=== PATIENT | male | born 1935 | race Caucasian/White ===

== ENCOUNTER → 2018-02-07 10:24 | Outpatient (CLI) | payer MEDICARE ==
[~2018-02-07] VITALS: Ht 172.7 cm; Wt 81.8 kg
--- NOTE | ~2018-02-07 | OP ---
PATIENT NAME: MOLLY MAYEN MEDICAL RECORD: [id number] :31 LOCATION:D.CAT ADMISSION DATE: SURGEON: OLGA KHAN MD DATE OF OPERATION: 02/07/2018 PROCEDURE: Catheterization plus four-vessel plus LINQ device placement. LINQ DEVICE PLACEMENT: After the skin was prepped and draped in usual fashion, 1% lidocaine was used for local anesthesia. The LINQ was placed subcutaneously in the usual fashion. After adequate R waves were obtained, the LINQ was secured and this was closed with karen. FOUR-VESSEL ARTERIOGRAPHY: RIGHT: Right common carotid was selectively cannulated. This shows a smooth-walled vessel, free of disease. Right internal carotid, smooth-walled vessel, free of disease. Right external carotid, smooth-walled vessel, free of disease. LEFT: Left common carotid shows a plaque of approximately 70% before the bifurcation of the left internal and external carotid. Left internal carotid, smooth-walled vessel, free of disease. Left external carotid, smooth-walled vessel, free of disease. LEFT HEART CATHETERIZATION: Left heart catheterization, selective coronary angiography, right femoral artery approach. CATHETERS: A 5-Maltese sheath, 5/4 left and right Cecy, 5/4 pig. The procedure was well tolerated. FINDINGS: Left ventriculography in 30-degree ORDONEZ view: Normal wall motion, normal systolic function. CORONARY ANATOMY: LEFT MAIN: Left main is free of disease. LAD: Has severe diffuse distal disease. This is a very small vessel and not reaching the apex. CIRCUMFLEX: Circumflex again a small vessel, not reaching the apex, free of disease. RIGHT CORONARY ARTERY: This is a large, dominant right and this actually supplies the apex and this shows no dissection or stenosis. IMPRESSION: Significant disease of the left common carotid, will be managed medically. Distal disease of the LAD, will be manage medically. Successful planning of LINQ device. TRANSINT:[id number] Voice Confirmation ID: [id number] DOCUMENT ID: [id number] OPERATIVE REPORT [id number] MOLLY MAYEN GREGORY A MD at 1135 CC: [id number] DICTATION DATE: 02/07/18 1451 BOOT REPAIRER: 02/07/18 1526 DEP CLI 02/07/18 [facility] [address] [place] [address]
--- NOTE | ~2018-02-07 | HEMODYNAMI ---
PATIENT:MOLLY MAYEN MEDICAL RECORD: [id number] : 31 LOCATION:DILEEP ADMISSION DATE: 02/07/18 Generatedon:02/07/201814:50 Patient name: MOLLY MAYEN Patient #: [id number] SSN: : 1935 Date of study: 02/07/2018 Page: Of Hemodynamic Procedure Report Patient Data Patient Demographics Procedure consent was obtained First Name: MOLLY Gender: Male Last Name: TIARRA : 1935 [facility] Initial: VIPUL Age: 82 year(s) Patient #: [id number] Race: Unknown Additional ID: [id number] Contact details [address]: [address] [place] [address] State: [place] City: [place] Zip code: [address] Past Medical History Allergies: No known allergies Admission Admission Data Admission Date: 02/07/2018 Admission Time: 10:24 Procedure Procedure Types Cath Procedure Diagnostic Procedure LHC LHC w/Coronaries PPM/ICD Loop Recorder Implant Peripheral Cath Diagnostic Procedure Vice Admiral Peripheral Procedures Four Vessel Arteriogram Procedure Description Procedure Date Procedure Date: 02/07/2018 Procedure Start Time: 14:31 Procedure End Time: 14:47 Procedure Staff Name Function Hao Rob MD Performing Physician Fadia Mackey RT Monitor Timothy Stewart RN Nurse Dionna Bustamante RT Scrub Procedure Data Cath Procedure Fluoroscopy Diagnostic fluoroscopy Total fluoroscopy Time: 3.2 time: 3.2 min min Diagnostic fluoroscopy Total fluoroscopy dose: 452 dose: 452 mGy mGy Contrast Material Contrast Material Type Amount (ml) Isovue 300 78 Entry Location Entry Primary Successful Side Size Upsize Upsize Entry Closure Succes sful Closure Location (Fr) 1 (Fr) 2 (Fr) Remarks Device Remarks Femoral Right 5 Fr Exoseal artery Estimated blood loss: 5 ml Diagnostic catheters Device Type Used For End Catheter Placement MULTIPACK JL 4.0 5Fr Left Coronary catheter Angiography MULTIPACK 3DRC 5Fr Right Coronary catheter Angiography MULTIPACK 3DRC 5Fr Cervical carotid catheter (common) arteriography MULTIPACK 3DRC 5Fr Cervical carotid catheter (common) arteriography MULTIPACK Pigtail 5 Fr LV Angiography catheter Procedure Complications No complications Procedure Medications Medication Administration Route Dosage 0.9% NaCl I.V. 100 ml/hr Oxygen etCO2 Nasal cannula 2 l/min Heparin Flush Bag added to field 2 bags (1000units/500ml NS) Lidocaine 2% added to field 20 Radial Cocktail added to field 1 syringe (Verapomil 2mg/Nitro 400mcg/Heparin 1500units) Ancef (1Gm/50ml NS) I.V.P.B 1 g Versed I.V. 2 mg Fentanyl I.V. 100 mcg Versed I.V. 1 mg Hemodynamics Rest Heart Rate: 68 (bpm) Pressure Samples Time Site Value (mmHg) Purpose Heart Use Rate(bpm) 14:41 LV 162/5,12 EDP 72 Gradients Valve Time Site Site Mean SEP/DFP Peak To Heart Use 1 2 (mmHg) (sec/min) Peak Rate (mmHg) (bpm) Aortic 14:41 LV AO 67 Snapshots Pre Cath Intra NCS Post Cath Vital Signs Time Heart Resp SPO2 etCO2 NIBP (mmHg) Rhythm Pain Sedation Rate (ipm) (%) (mmHg) Status Level (bpm) 14:06:30 65 11 100 0 162/95(151) NSR 0 (11) 10(A) , No pain 14:10:56 65 17 100 0 159/96(141) NSR 0 (11) 10(A) , No pain 14:15:24 66 18 100 0 167/95(131) NSR 0 (11) 10(A) , No pain 14:19:50 70 15 99 0 157/95(137) NSR 0 (11) 10(A) , No pain 14:24:17 62 18 99 0 157/101(137) NSR 0 (11) 9(A) , No pain 14:28:43 68 17 96 0 148/91(117) NSR 0 (11) 9(A) , No pain 14:33:05 74 28 99 0 161/116(151) NSR 0 (11) 9(A) , No pain 14:37:25 74 19 96 0 144/90(114) NSR 0 (11) 9(A) , No pain 14:41:47 70 19 92 30.8 148/88(123) NSR 0 (11) 9(A) , No pain 14:46:10 71 17 98 24 133/94(110) NSR 0 (11) 9(A) , No pain Medications Time Medication Route Dose Verified Delivered Reason Notes E ffectiveness by by 14:04:18 0.9% NaCl I.V. 100 Per ml/hr Pat Stewart physician RN RN 14:04:29 Oxygen etCO2 2 l/min Per Nasal Pat Stewart physician cannula RN RN 14:04:40 Heparin Flush added 2 bags used for Bag to Lorigan Lorigan procedure (1000units/500ml field RN RN NS) 14:04:53 Lidocaine 2% added 20ml for local to vial Lorigan Lorigan anesthetic field RN RN 14:05:25 Radial Cocktail added 1 used for (Verapomil to syringe Lorigan Lorigan procedure 2mg/Nitro field RN RN 400mcg/Heparin 1500units) 14:09:21 Ancef (1Gm/50ml I.V.P.B 1 g Per NS) Pat Stewart physician RN RN 14:13:06 Versed I.V. 2 mg for Lorigan Lorigan sedation RN RN 14:13:15 Fentanyl I.V. 100 mcg for Lorigan Lorigan sedation RN RN 14:31:50 Versed I.V. 1 mg for Lorigan Lorigan sedation RN sql developer dba Log Time Note 13:31:28 Time tracking: Regular hours (M-F 7:00 - 5:00) 13:31:33 Plan of Care:Hemodynamics will remain stable., Cardiac rhythm will remain stable., Comfort level will be maintained., Respiratory function will remain adequate., Patient/ family verbilizes understanding of procedure., Procedure tolerated without complication., Recovers from procedure without complications.. 13:43:55 Fadia Mackey RT(R) sent for patient. Start room use. 13:49:11 Patient allergic to No known allergies 13:52:20 Patient received from Pre/Post Procedure Room to CCL 1 Alert and oriented. Tansferred to table in Supine position. 13:52:22 Warm blankets applied, and per hugger turned on for patient comfort. 13:52:22 Correct patient and procedure confirmed by team. 13:52:24 Signed procedure consent form obtained from patient. 13:52:25 ECG and BP/O2 sat monitors applied to patient. 14:04:18 0.9% NaCl 100 ml/hr I.V. was administered by Timothy Stewart RN; Per physician; 14:04:29 Oxygen 2 l/min etCO2 Nasal cannula was administered by Timothy Stewart RN; Per physician; 14:04:40 Heparin Flush Bag (1000units/500ml NS) 2 bags added to field was administered by Timothy Stewart RN; used for procedure; 14:04:53 Lidocaine 2% 20ml vial added to field was administered by Timothy Stewart RN; for local anesthetic; 14:05:06 Vital chart was started 14:05:25 Radial Cocktail (Verapomil 2mg/Nitro 400mcg/Heparin 1500units) 1 syringe added to field was administered by Timothy Stewart RN; used for procedure; 14:09:21 Ancef (1Gm/50ml NS) 1 g I.V.P.B was administered by Timothy Stewart RN; Per physician; 14:11:10 Full Disclosure recording started 14:11:14 Rhythm: sinus rhythm 14:11:18 H&P Date Dictated: 02/07/2018 Within 30 days and on chart., H&P Addendum completed by physician on day of procedure. (MUST COMPLETE FOR ALL OUTPATIENTS). 14:11:19 Pre-procedure instructions explained to patient. 14:11:19 Pre-op teaching completed and patient verbalized understanding. 14:11:21 Family in patients room. 14:11:22 Patient NPO since Midnight. 14:11:23 Final Timeout: patient, procedure, and site verified with staff and physician. All members of the team are in agreement. 14:11:25 Is the patient allergic to Iodine/contrast media? No. 14:11:26 Right Radial & Right Groin site verified by team. 14:11:29 Mid Chest site verified by team. 14:11:29 Is patient on blood thinner?No 14:11:30 Patient diabetic? No. 14:11:32 Previous problem with sedation/anesthesia? No ? 14:11:33 Physical assessment completed. ASA score P 2 - A patient with mild systemic disease as per Hao Rob MD. 14:11:34 Snore? No 14:11:35 Sleep apnea? No 14:11:36 Deviated septum? No 14:11:37 Opens mouth fully? Yes 14:11:38 Sticks out tongue? Yes 14:11:40 Airway obstruction? No ? 14:11:43 Dentures? Yes In 14:11:46 Pre procedure: right dorsailis pedis pulse 2+ Normal; easily identifiable; not easily obliterated 14:11:49 Modified Evelio's test Ulnar < 7 seconds 14:11:51 Patient pain scale 0/10 ?. 14:11:58 IV patent on arrival in left forearm with 0.9% NaCl at [facility]. 14:12:02 Lab results completed and on chart. 14:12:07 Right Radial & Right Groin area was prepped with chlora-prep and draped in sterile fashion 14:12:14 Mid Chest area was prepped with chlora-prep and draped in sterile fashion 14:12:15 Alarms reviewed by R. N. 14:12:16 Sharps counted by scrub and verified by R.N. 14:12:36 Sedation plan: IV Moderate Sedation Medication:Versed, Fentanyl 14:12:43 Medtronic security systems sales representative ?? present for procedure. 14:12:50 Procedure started. 14:12:52 Lidocaine 2% was administered to mid chest by Hao Rob MD . 14:12:55 Incision made to mid chest. 14:13:03 Linq was inserted subcutaneously to mid chest. 14:13:06 Versed 2 mg I.V. was administered by Timothy Stewart RN; for sedation; 14:13:15 Fentanyl 100 mcg I.V. was administered by Timothy Stewart RN; for sedation; 14:14:33 Insertion site dressed with steri strip. 14:27:00 Zero performed for pressure channel P1 14:27:31 Stapler Skin 35W Proximate Plus (PMW35) opened to sterile field. 14:28:05 Use device set Multipack Set 14:28:08 DIAGNOSTIC Multipack 5Fr catheter set ([id number]) opened to sterile field. 14:28:11 SHEATH Prelude 5Fr 0.035 ([id number]) opened to sterile field. 14:28:29 Procedure type changed to Cath procedure, Diagnostic procedure, LHC, LHC w/Coronaries, PPM/ICD, Loop Recorder Implant, Peripheral Cath Diagnostic Procedure, Vice Admiral Peripheral Procedures, Four Vessel Arteriogram 14:31:22 Local anesthetic to right femoral artery with Lidocaine 2% by Hao Rob MD.INITIAL ACCESS ONLY 14:31:50 Versed 1 mg I.V. was administered by Timothy Stewart RN; for sedation; 14:31:53 A 5 Fr sheath was inserted into the Right Femoral artery 14:33:03 A MULTIPACK JL 4.0 5Fr catheter was advanced over the wire and used for Left Coronary Angiography. 14:34:23 Baseline sample Acquired. 14:34:36 Catheter removed. 14:34:51 A MULTIPACK 3DRC 5Fr catheter was advanced over the wire and used for Right Coronary Angiography. 14:36:55 A MULTIPACK 3DRC 5Fr catheter was advanced over the wire and used for Cervical carotid (common) arteriography. Right 14:38:47 A MULTIPACK 3DRC 5Fr catheter was advanced over the wire and used for Cervical carotid (common) arteriography.Left 14:39:54 Catheter removed. 14:40:01 A MULTIPACK Pigtail 5 Fr catheter was advanced over the wire and used for LV Angiography. 14:41:40 LV gram done using ORDONEZ 14:41:44 EF : 50 % 14:41:47 Injector settings: Ml/sec: 10, Volume: 20, 14:42:57 Catheter removed. 14:43:06 Sheath removed intact; hemostasis achieved with Exoseal to the Right Femoral artery. 14:43:08 Procedure ended.(Physican Out) 14:43:23 Fluoroscopy time 03.20 minutes. 14:43:28 Flurop Dose total: 452 14:43:29 Fluoroscopy dose: 452 mGy 14:43:33 Contrast amount:Isovue 300 78ml. 14:43:34 Sharps counted by scrub and verified by R.N. 14:43:36 Insertion/operative site no bleeding no hematoma. 14:43:41 Post-op/insertion site Right Femoral artery dressed using a 4 x 4 and Tegaderm. 14:43:45 Post right femoral artery:stable, clean and dry 14:43:54 Post Chest area:stable, clean and dry 14:43:55 Post Procedure Pulses reassessed and unchanged 14:43:58 Post-procedure physical assessment completed. ASA score P 2 - A patient with mild systemic disease as per Hao Rob MD. 14:44:01 Post procedure rhythm: unchanged. 14:44:03 Estimated blood loss: 5 ml 14:44:05 Post procedure instruction explained to patient.Patient verbalizes understanding. 14:44:05 Patient needs reinforcement of post procedure teaching. 14:44:10 Procedure Complication : No complications 14:44:12 See physician's report for complete and final results. 14:44:23 EXOSEAL 5Fr (EX500) opened to sterile field. 14:44:34 Tegaderm 4 x 4 (1626W) opened to sterile field. 14:44:52 Use device set Femoral Dx 14:44:53 ACIST Syringe (51515) opened to sterile field. 14:44:53 Bag Decanter (2002S) opened to sterile field. 14:44:54 Medline Cath Pack ([id number]) opened to sterile field. 14:44:54 DIAGNOSTIC WIRE .035 260cm J wire (478924) opened to sterile field. 14:44:55 ACIST Hand Control (17373) opened to sterile field. 14:44:56 ACIST Manifold (63573) opened to sterile field. 14:44:57 Tegaderm 4 x 4 (1626W) opened to sterile field. 14:47:09 Procedure and supply charges have been captured, reviewed, submitted and are correct. 14:47:25 Vital chart was stopped 14:47:28 Report given to Pre/Post Procedure Room. 14:47:31 Patient transfered to Pre/Post Procedure Room with Stretcher. 14:47:38 Procedure ended. 14:47:38 Full Disclosure recording stopped 14:47:41 End room use (Document Last) 14:49:50 Medtronic Linq Loop Recorder opened to sterile field. Device Usage Item Name Manufacture Quantity Catalog Number Hospital Part Current M inimal Lot# / Charge Number Stock Stock Serial# Code Stapler Skin Unknown 1 [id number] 5 35W Proximate Plus (PMW35) DIAGNOSTIC Cardinal 1 [id number] 292839 51171 006917 3 0 Multipack 5Fr Health catheter set (ET0139) SHEATH Prelude Merit 1 [id number] 500373 548644 5 5Fr 0.035 Medical ([id number]) MULTIPACK JL Cardinal 1 [id number] 5 4.0 5Fr Health catheter MULTIPACK 3DRC Cardinal 1 [id number] 5 5Fr catheter Health MULTIPACK Cardinal 1 399720 5 Pigtail 5 Fr Health catheter EXOSEAL 5Fr Cardinal 1 EX500 991435 449408 701951 1 0 (EX500) Niwa Tegaderm 4 x 4 3M 2 1626W 596819 030736 656655 5 (1626W) ACIST Syringe Acist 1 27807 139176 918583 504254 2 0 (88063) Medical Systems Inc Bag Decanter Microtek 1 2002S 026392 95077 114801 5 (2002S) Medical Inc. Medline Cath Cardinal 1 [id number] 048325 10504 046230 5 Pack Health ([id number]) DIAGNOSTIC WIRE St Reji 1 353346 335244 095625 969010 3 0 .035 260cm J wire (393413) ACIST Hand Acist 1 15741 609161 835608 131944 5 Control (61454) Medical [employer] Inc ACIST Manifold Acist 1 98891 288733 865964 385799 5 (00462) [employer] Inc Medtronic Linq Medtronic 1 LNQSYS 697404 789616 030268 5 [id number] Loop Recorder 2018-09-01 Signature Audit [place] Stage Time Signature Unsigned Intra-Procedure 02/07/2018 Fadia 2:50:45 PM Counts RT(R) Signatures Monitor : Fadia Signature : Counts RT Date : Time : [address] [address] [place] [address]
[2018-02-07 10:49] VITALS: BP 176/85; Ht 172.7 cm; Wt 81.8 kg
[2018-02-07 10:57] LABS: BASOPHILS 0.7 % (0-2); EOSINOPHILS 3.5 % (0-7); HEMATOCRIT 41.1 % (42.0-54.0); HEMOGLOBIN 14.4 g/dL (13.5-17.5); LYMPHOCYTES 31.1 % (15-50); MCH 33.6 pg (26.0-34.0); MCV 95.8 fL (80.0-100.0); MEAN PLATELET VOLUME 10.1 fL (7.4-10.4); MONOCYTES 10.3 % (2-11); NEUTROPHILS 54.4 % (40-80); PLATELET COUNT 159 10x3/uL (130-400); RBC 4.29 10x6/uL (4.20-6.10); RDW 13.4 % (11.5-14.5); WBC 5.4 10x3/uL (4.8-10.8)
[2018-02-07 11:13] LABS: ANION GAP 8.9 mmol/L (8-16); CALCIUM 9.1 mg/dL (8.5-10.1); CARBON DIOXIDE 29.8 mmol/L (21.0-32.0); CREATININE - SERUM 1.2 mg/dL (0.6-1.3); POTASSIUM - SERUM 3.7 mmol/L (3.5-5.1)
== END | disposition home or self-care (01) ==
LOC: D.CATH 10:24
PROVIDERS: Internal Medicine Interventional Cardiology
DX: I65.22 Occlusion and stenosis of left carotid artery (principal); I25.10 Atherosclerotic heart disease of native coronary artery without angina pectoris; R55 Syncope and collapse; Z01.812 Encounter for preprocedural laboratory examination